=== PATIENT | female | born 1955 | race Caucasian/White ===

== ENCOUNTER → 2019-10-13 | Outpatient (CLI) | payer MEDICARE ==
--- NOTE | 2019-10-13 12:12 | KCIC ---
EXAM: Thyroid Ultrasound INDICATION: Enlarged thyroid ? TECHNIQUE: Real-time ultrasound of the thyroid was performed with permanent freeze-frame documentation. COMPARISON: None. ? FINDINGS: THYROID: Thyroid gland is normal and homogeneous echogenicity. ? Right Lobe: 5.8 x 1.3 x 1.5 cm. ? Left Lobe: 5.3 x 1.5 x 1.9 cm. ? Isthmus: 0.3 cm. ?? In the medial slightly inferior right thyroid lobe is a 0.7 x 0.6 x 0.7 cm hypoechoic round nodule with ill-defined margins. No internal echogenic foci suggestive of microcalcifications. ? OTHER: No evidence of adjacent cervical adenopathy. ? IMPRESSION: ? Solitary 0.7 cm round nodule in the inferior medial right thyroid lobe. This is moderately suspicious (TI RADS 4) and should be considered for biopsy at a size greater or equal to 1.5 cm according to the white paper of the ACR committee on thyroid imaging reporting and data system. In the interim, sonographic surveillance may be prudent. Electronically signed by: Sully Christianson MD (10/13/2019 12:09 PM) [id number]
== END | disposition home or self-care (01) ==
LOC: KCIC US 10:50
PROVIDERS: ATTEND Physician Assistant Medical
DX: E04.1 Nontoxic single thyroid nodule (principal)
CPT/HCPCS: 76536

== ENCOUNTER → 2020-03-31 | Outpatient (CLI) | payer MEDICARE ==
[~2020-03-31] MED LIST: FENO54TA PO; IOHEXOL 300 MG/ML 100ML VIAL. IV ONE; LISI10TA2 PO; LOSA-73 PO; METF500T16 PO; VITA200C PO
--- NOTE | 2020-03-31 17:07 | KCIC ---
EXAM: CT Neck with IV contrast INDICATION: Reason: LUMP SC JOINT AREA / Spl. Instructions: Lump since 2019, 100mL Omni 300, BB on area of interest. / History: TECHNIQUE: Multiple contiguous axial images were obtained of the neck with the use of IV contrast. Post-processing reconstructed images were obtained for interpretation. All CT scans performed at this facility utilize dose optimization techniques as appropriate to the exam, including the following: Automated exposure control and adjustment of the mA and/or KV according to patient size (this includes techniques or standardized protocols for targeted exams where dose is indication/reason for exam). IV CONTRAST: Administered COMPARISON: None FINDINGS: INTRACRANIAL STRUCTURES & ORBITS: Filling defect in the proximal V4 segment of the right vertebral artery could reflect flow-limiting stenosis from noncalcified plaque, best illustrated on axial image 60 series 2, sagittal image 36 series 5. Patient has a left dominant vertebral system. AERODIGESTIVE: The nasal cavity, nasopharynx, oral cavity, oropharynx, hypopharynx, larynx, and visualized trachea and esophagus demonstrate no masses or abnormal enhancement. CERVICAL LYMPH NODES & SOFT TISSUES: No adenopathy, soft tissue mass, or fluid collection. Multiple prominent subcentimeter lymph nodes are present bilaterally at all tita stations. None are pathologically enlarged, abnormally enhancing or showing abnormal morphology. The midline anterior neck is marked with a BB marker (image 49 series 2) that presumably reflects the area of palpable concern on clinical exam. There is no correlative soft tissue mass. Prominent ventral neck adipose tissue is noted. THYROID & SALIVARY GLANDS: Unremarkable. LUNG APICES: Clear. Two vessel aortic arch incidentally noted. OSSEOUS: Mild cervical spinal degenerative spondylosis. No fracture or aggressive osseous lesions. IMPRESSION: 1. No mass at the sternoclavicular junction of the anterior neck is identified. No CT correlate to the area of palpable concern is identified. 2. Noncalcified plaque in the left V4 vertebral artery segment could be causing flow-limiting stenosis. Correlation with carotid duplex ultrasound to confirm antegrade flow in the vertebral artery on an elective basis could be pursued if clinically warranted. Electronically signed by: Sully Christianson MD (03/31/2020 5:04 PM) [id number]
== END | disposition home or self-care (01) ==
LOC: KCIC CT 12:36
PROVIDERS: ATTEND Otolaryngology
DX: R22.1 Localized swelling, mass and lump, neck (principal); I67.2 Cerebral atherosclerosis; M47.812 Spondylosis without myelopathy or radiculopathy, cervical region
CPT/HCPCS: 70491; 82565; Q9967

== ENCOUNTER → 2020-04-19 | Outpatient (CLI) | payer MEDICARE ==
[~2020-04-19] MED LIST changes: -IOHEXOL 300 MG/ML 100ML VIAL. IV ONE
--- NOTE | 2020-04-19 14:50 | KCIC ---
Carotid doppler ultrasound History: Hypertension Multiple grayscale, color, and duplex spectral analysis waveform sonographic images were acquired of the carotid, subclavian, and vertebral arteries. Comparison: None Findings: RIGHT: PSV cm/sec EDV cm/sec Common carotid artery 78 16 Maximal internal carotid artery 55 20 External carotid artery 100 Vertebral artery 30 ICA/CCA ratio 0.7 LEFT: PSV cm/sec EDV cm/sec Common carotid artery 81 24 Maximum internal carotid artery 75 30 External carotid artery 78 Vertebral artery 42 ICA/CCA ratio 0.96 Velocities used to determine stenosis are known to correlate with NASCET angiographic criteria. There is antegrade flow in the bilateral vertebral arteries. No significant stenosis is demonstrated on grayscale or color images. Impression: 1. There is no evidence of a hemodynamically significant stenosis. Electronically signed by: Siva Sibley MD (04/19/2020 2:47 PM) [id number]
== END | disposition home or self-care (01) ==
LOC: KCIC US 12:43
PROVIDERS: ATTEND Family Medicine
DX: I65.02 Occlusion and stenosis of left vertebral artery (principal)
CPT/HCPCS: 93880

== ENCOUNTER → 2020-04-28 | Outpatient (CLI) | payer MEDICARE ==
--- NOTE | 2020-04-28 14:59 | KCIC ---
EXAM: Bilateral screening mammogram. HISTORY: 64-year-old female presents for screening mammography. TECHNIQUE: Full-field digital craniocaudal and mediolateral oblique views of both breasts are obtained for evaluation. Computer aided detection with [employer] software version 9.3 was applied. COMPARISON: 09/23/2015 BREAST PARENCHYMAL DENSITY: Level B - Scattered fibroglandular densities. FINDINGS: There is no new suspicious mass, microcalcification or region of architectural distortion. IMPRESSION: BI-RADS Category 2: Benign finding(s). RECOMMENDATION: Annual mammography is recommended. If your mammogram demonstrates that you have dense breast tissue, which could hide abnormalities, and if you have other risk factors for breast cancer that have been identified, you might benefit from supplemental screening tests that may be suggested by your ordering physician. Dense breast tissue, in and of itself, is a relatively common condition. This information is not provided to cause undue concern, but rather to raise your awareness and to promote discussion with your physician regarding the presence of other risk factors, in addition to dense breast tissue. A report of your mammography results will be sent to you and your physician. You should contact your physician if you have any questions or concerns regarding this report. Mammography is a sensitive method for finding small breast cancers, but it does not detect them all and is not a substitute for careful clinical examination. A negative mammogram does not negate a clinically suspicious finding and should not result in delay in biopsying a clinically suspicious abnormality. PQRS compliance statement - Patient information was entered into a reminder system with a target due date for the next mammogram. "Our facility is accredited by the [employer] Mammography Program." Electronically signed by: Camila Cruz MD (04/28/2020 2:56 PM) [id number]
== END | disposition home or self-care (01) ==
LOC: KCIC MAMMO 12:31
PROVIDERS: ATTEND Family Medicine
DX: Z12.31 Encounter for screening mammogram for malignant neoplasm of breast (principal)
CPT/HCPCS: 77067

== ENCOUNTER → 2020-10-06 | Outpatient (CLI) | payer MEDICARE ==
[~2020-10-06] MED LIST changes: +LISI10TA16 PO; -LISI10TA2 PO
--- NOTE | 2020-10-06 17:01 | KCIC ---
EXAM: Thyroid sonogram. HISTORY: Thyroid nodule. TECHNIQUE: Sonographic imaging of the thyroid was performed. COMPARISON: 10/13/2019. FINDINGS: The right thyroid lobe measures 4.8 x 1.6 x 1.3 cm. The left thyroid lobe measures 5.0 x 1. 5 x 1.4 cm. The thyroid isthmus measures 1.5 mm. There is a solid circumscribed hypoechoic nodule within the mid right thyroid lobe measuring 7 x 6 x 6 mm. This is unchanged in size. This demonstrates a taller than wide morphology. There is a stable t iny colloid cyst measuring 2 mm within the superior right thyroid lobe. There is a stable 2 mm colloid cyst within the inferior left thyroid lobe. There is additional 3 mm c olloid cyst within the inferior left thyroid lobe which is new compared to the prior study. IMPRESSION: 1. Stable 7 mm right thyroid nodule. The morphology of this lesion is consistent with a TI-RADS Categ ory 5 lesion. Continued annual follow-up is recommended for subcentimeter TI-RADS Category 5 lesions. 2. Tiny benign bilateral colloid cysts. Electronically signed by: Camila Cruz MD (10/06/2020 4:58 PM) [id number]
== END ==
LOC: KCIC US 14:10
PROVIDERS: ATTEND Registered Nurse
DX: E04.1 Nontoxic single thyroid nodule (principal)
CPT/HCPCS: 76536

== ENCOUNTER → 2021-10-05 | Outpatient (CLI) | payer MEDICARE ==
--- NOTE | 2021-10-05 10:18 | KCIC ---
EXAM: ULTRASOUND SOFT TISSUE NECK CLINICAL HISTORY: Reason: Thyroid Nodule Follow up / Spl. Instructions: / History: COMPARISON: Thyroid ultrasound October 06, 2020. TECHNIQUE: Ultrasound examination of the thyroid gland was performed FINDINGS: Sonographic evaluation of the thyroid gland was performed and evaluated using ACR TI-RADS criteria. There is a TR4 nodule of the inferior right thyroid lobe with maximum dimension of 6 mm, 7 mm on prio r study. On today's study the nodule appears round and not taller than wide. There are 2 tiny colloid cysts in the left thyroid lobe, unchanged. The right thyroid lobe measures 5.6 x 1.8 x 1.3 cm. The left thyroid lobe measures 5.4 x 1.7 x 1.6 cm. The isthmus measures 3 mm AP. IMPRESSION: Solid hypoechoic nodule of the inferior right thyroid lobe is stable in size. Consider continued surv eillance. Electronically signed by: Robinson Hunter MD (10/05/2021 10:16 AM) [id number]
== END ==
LOC: KCIC US 08:33
PROVIDERS: ATTEND Registered Nurse
DX: E04.1 Nontoxic single thyroid nodule (principal)
CPT/HCPCS: 76536